=== PATIENT | male | born 1990 | race American Indian/Alaskan Native ===

== ENCOUNTER 2016-11-07 02:26 | Observation (INO) | payer OTHER ==
[2016-11-07 02:31] VITALS: BMI 23.6
[2016-11-07 02:37] VITALS: TEMP 98
--- NOTE | 2016-11-07 02:37 | ED PDOC ---
Arrival/HPI - General Chief Complaint: Alcohol Ingestion Time Seen by Provider: 11/07/16 02:31 Historian: Patient - History of Present Illness Narrative History of Present Illness (Text): 11/07/16 02:36 Emeka Hernandez is a 25 year old male who presents to the Emergency department broughtnfor alcohol intoxication and vomiting tonight. Patient admits to drinking 3 glasses of liquor tonight. Patient reports he is now experiencing nausea and vomiting. Patient denies any suicidal ideation, homicidal ideation, depression, diarrhea, urinary symptoms, headache, dizziness, or any other complaints. Time/Duration: Other (tonight) Symptom Onset: Gradual Symptom Course: Unchanged Activities at Onset: Light Past Medical History - Provider Review Nursing Documentation Reviewed: Yes - Cardiac Hx Cardiac Disorders: No - Pulmonary Hx Respiratory Disorders: No - Neurological Hx Neurological Disorder: No - HEENT Hx HEENT Disorder: No - Renal Hx Renal Disorder: No - Endocrine/Metabolic Hx Endocrine Disorders: No - Hematological/Oncological Hx Blood Disorders: No - Integumentary Hx Dermatological Disorder: No - Musculoskeletal/Rheumatological Hx Musculoskeletal Disorders: No - Gastrointestinal Hx Gastrointestinal Disorders: No - Genitourinary/Gynecological Hx Genitourinary Disorders: Yes Hx Sexually Transmitted Diseases: Yes (chlamydia) - Psychiatric Hx Psychophysiologic Disorder: No Hx Substance Use: Yes Family/Social History - Physician Review Nursing Documentation Reviewed: Yes Family/Social History: No Known Family HX Smoking Status: Never Smoked Hx Alcohol Use: No Hx Substance Use: Yes Substance used: marijuana Allergies/Home Meds Allergies/Adverse Reactions: Allergies soy Allergy (Verified 11/07/16 02:32) RASH strawberry Allergy (Verified 11/07/16 02:32) RASH Home Medications: Home Meds Medication Instructions Recorded Confirmed No Known Home Med 11/07/16 11/07/16 Review of Systems - Physician Review All systems were reviewed & negative as marked: Yes - Review of Systems Constitutional: Normal. absent: Fevers Eyes: Normal ENT: Normal Respiratory: Normal. absent: SOB, Cough Cardiovascular: Normal. absent: Chest Pain Gastrointestinal: Nausea, Vomiting. absent: Abdominal Pain, Diarrhea Genitourinary Male: Normal Musculoskeletal: Normal Skin: Normal Neurological: Normal. absent: Headache, Dizziness Endocrine: Normal Hemo/Lymphatic: Normal Psychiatric: Normal. absent: Depression, Suicidal Ideation Physical Exam Vital Signs Reviewed: Yes Vital Signs Temp Pulse Resp BP Pulse Ox 11/07/16 05:14 86 18 118/63 96 11/07/16 02:34 98.0 F 90 16 103/66 99 Temperature: Afebrile Blood Pressure: Normal Pulse: Regular Respiratory Rate: Normal Appearance: Positive for: Well-Appearing, Comfortable Pain Distress: None Mental Status: Positive for: Alert and Oriented X 3 - Systems Exam Head: Present: Atraumatic, Normocephalic Pupils: Present: PERRL Extroacular Muscles: Present: EOMI Conjunctiva: Present: Normal Mouth: Present: Moist Mucous Membranes Neck: Present: Normal Range of Motion Respiratory/Chest: Present: Clear to Auscultation, Good Air Exchange. No: Respiratory Distress, Accessory Muscle Use Cardiovascular: Present: Regular Rate and Rhythm, Normal S1, S2. No: Murmurs Abdomen: Present: Normal Bowel Sounds. No: Tenderness, Distention, Peritoneal Signs Back: Present: Normal Inspection Upper Extremity: Present: Normal Inspection. No: Cyanosis, Edema Lower Extremity: Present: Normal Inspection. No: Edema Neurological: Present: GCS=15, CN II-XII Intact, Speech Normal Skin: Present: Warm, Dry, Normal Color. No: Rashes Psychiatric: Present: Alert, Oriented x 3, Normal Insight, Normal Concentration , Intoxicated Medical Decision Making ED Course and Treatment: 11/07/16 02:36 ED OBSERVATION Date of observation admission: 11/07/16 Time of observation admission: 02:36 - Observation admission statement Patient is being placed in observation because:: alcohol intoxication - Goals of Observation Goals of observation are:: sobriety - Progress Note Progress Note: 11/07/16 02:36 Impression: 25 year old male brought in for alcohol intoxication and vomiting Differential Diagnosis included but are not limited to: alcohol intoxication Plan: -- Observe pending sobriety -- Reassess and disposition Progress Notes: 11/07/16 04:30 Pt sleeping currently, in no acute distress. 11/07/16 05:47 Pt is awake, alert, oriented x3, and ambulatory in Emergency department. Pt stable for d/c. - Scribe Statement The provider has reviewed the documentation as recorded by the Magdy Marroquin Provider Attestation: All medical record entries made by the Scribwilla were at my direction and personally dictated by me. I have reviewed the chart and agree that the record accurately reflects my personal performance of the history, physical exam, medical decision making, and the department course for this patient. I have also personally directed, reviewed, and agree with the discharge instructions and disposition. Disposition/Present on Arrival - Present on Arrival Any Indicators Present on Arrival: No History of DVT/PE: No History of Uncontrolled Diabetes: No Urinary Catheter: No History of Decub. Ulcer: No History Surgical Site Infection Following: None - Disposition Have Diagnosis and Disposition been Completed?: Yes Diagnosis: Alcohol abuse Disposition: HOME/ ROUTINE Disposition Time: 06:00 Condition: STABLE
[2016-11-07 05:14] VITALS: BP 118/63; PULSE 86; RESP 18; O2SAT 96
== END 2016-11-07 05:47 | disposition home or self-care (01) ==
LOC: ED 02:26 → EROBSV 02:36
PROVIDERS: ADMIT Student in an Organized Health Care Education/Training Program; ATTEND Student in an Organized Health Care Education/Training Program
DX: F10.10 Alcohol abuse, uncomplicated (principal)
CPT/HCPCS: 99283; G0378

== ENCOUNTER 2017-05-09 21:56 | Emergency (ER) | payer OTHER ==
[2017-05-09 21:57] VITALS: BMI 23.6
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
[2017-05-09 22:27] VITALS: BP 126/96; PULSE 72; RESP 18; TEMP 98.2; O2SAT 97
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
--- NOTE | 2017-05-11 00:14 | CARD ---
APPROVED REPORT EKG Measurement Heart [id number] <Conclusion> Normal sinus rhythm with sinus arrhythmia ST elevation, early repolarization vs anterior injury pattern Abnormal ECG
== END 2017-05-09 23:10 | disposition home or self-care (01) ==
LOC: ED 21:56
DX: S20.219A Contusion of unspecified front wall of thorax, initial encounter (principal); V49.40XA Driver injured in collision with unspecified motor vehicles in traffic accident, initial encounter